=== PATIENT | female | born 1950 | race Hispanic/Latino ===

== ENCOUNTER → 2020-10-26 | Outpatient (CLI) | payer OTHER | END | disposition home or self-care (01) | LOC: RAH 09:03 | PROVIDERS: ATTEND Internal Medicine Gastroenterology | DX: K74.60 Unspecified cirrhosis of liver (principal); R14.3 Flatulence; R16.1 Splenomegaly, not elsewhere classified | CPT/HCPCS: 76700; 93975 ==

== ENCOUNTER 2021-05-28 17:43 | Inpatient (IN) | payer OTHER ==
[~2021-05-28] VITALS: Ht 157.5 cm; Wt 83.4 kg
[2021-05-28 18:15] LABS: BASOPHILS % (AUTO) 0.4 % (0.0-5.0); EOSINOPHILS % (AUTO) 2.3 % (0.0-8.0); LYMPHOCYTES % (AUTO) 34.5 % (21.0-51.0); MEAN CORPUSCULAR HEMOGLOBIN 32.5 pg (27.0-33.0); MEAN CORPUSCULAR VOLUME 92.9 fL (79-99); MONOCYTES % (AUTO) 8.1 % (3.0-13.0); NEUTROPHILS % (AUTO) 54.5 % (40.0-77.0); PLATELET COUNT (AUTO) 80 K/uL (130-400); RED BLOOD CELL COUNT(AUTO) 4.09 MIL/uL (4.00-5.50); RED CELL DISTRIBUTION WIDTH 13.7 % (11.0-15.5); WHITE BLOOD COUNT (AUTO) 4.7 K/uL (4.8-10.8)
[2021-05-28 18:26] LABS: INR 1.61 (0.85-1.15); PROTHROMBIN TIME 16.8 SEC (9.6-11.6)
[2021-05-28 18:27] LABS: CREATININE 1.3 mg/dL (0.5-1.5); POTASSIUM 3.7 mmol/L (3.5-5.1)
[2021-05-28 18:38] LABS: ALBUMIN 3.1 g/dL (3.5-5.0); BILIRUBIN,TOTAL 1.5 mg/dL (0.2-1.0); TOTAL PROTEIN, SERUM 7.8 g/dL (6.0-8.3)
[2021-05-28] MEDS ORDERED: DIATR MEGLU/DIATRIZOATE SODIUM 30 ML BOTTLE ONE (18:52)
[2021-05-28] MEDS ORDERED: IOHEXOL 350 MG/ML 100ML INFUS..BTL IV ONE (19:01)
[2021-05-28 19:31] LABS: APPEARANCE,URINE Clear (CLEAR); BILIRUBIN,URINE Negative (NEGATIVE); COLOR,URINE Yellow (YELLOW); GLUCOSE, URINE (UA) Negative (NEGATIVE); KETONES,URINE Negative (NEGATIVE); LEUKOCYTE ESTERASE ,URINE Trace (NEGATIVE); NITRATE,URINE Negative (NEGATIVE); OCCULT BLOOD,URINE Negative (NEGATIVE); PROTEIN,URINE Negative (NEGATIVE)
[2021-05-28 19:38] LABS: RBC,URINE 0-1 /HPF (0-1)
[2021-05-28 19:39] LABS: BACTERIA,URINE Rare /HPF (None Seen); SQUAMOUS EPITHELIAL CELL,UR Few /HPF (0-2)
[2021-05-28] MEDS ORDERED: RIFA550T PO (21:28)
[2021-05-28] MEDS ORDERED: FURO40TA5 PO (21:28)
[2021-05-28] MEDS ORDERED: GABA-533 PO ×3 (21:28)
[2021-05-28] MEDS ORDERED: PANT40TA54 PO (21:28)
[2021-05-28] MEDS ORDERED: LORA10TA7 PO (21:28)
[2021-05-28] MEDS ORDERED: SPIR50TA5 PO (21:28)
[2021-05-28] MEDS ORDERED: GUAIFENESIN-DM 200/20 MG 10 ML PO PRN (22:30)
[2021-05-28] MEDS ORDERED: MAGNESIUM 2GM PREMIX 50ML 50 ML IV PRN (22:30)
[2021-05-28] MEDS ORDERED: LABETALOL 20MG VIAL IV PRN (22:30)
[2021-05-28] MEDS ORDERED: GLUCAGON 1MG KIT 1 MG ML IM PRN (22:30)
[2021-05-28] MEDS ORDERED: POTASSIUM CHLORIDE 10MEQ/100ML 100 ML IV PRN (22:30)
[2021-05-28] MEDS ORDERED: ACETAMINOPHEN 325 MG TAB PO PRN ×2 (22:30)
[2021-05-28] MEDS ORDERED: ONDANSETRON 4MG INJ IV PRN (22:30)
[2021-05-28] MEDS ORDERED: 0.9%NACL 1000ML 1,000 ML IV SCH (22:30)
[2021-05-28] MEDS ORDERED: NITROGLYCERIN 0.4 MG SL TAB SL PRN (22:30)
[2021-05-28] MEDS ORDERED: DEXTROSE 50%-WATER 50 ML DISP.SYRIN IV PRN (22:30)
[2021-05-28] MEDS ORDERED: ZOLPIDEM TARTRATE 5 MG TAB PO PRN (22:30)
[2021-05-28] MEDS: PANTOPRAZOLE 40 MG/VIAL IVP SCH (22:32)
[2021-05-29] MEDS: INSULIN HUMULIN R 100 UNIT/ML 3ML SQ SCH ×4 (07:30→21:00)
[2021-05-29] MEDS ORDERED: MORPHINE 2 MG SYG ONE (07:51)
[2021-05-29] MEDS ORDERED: ONDANSETRON 4MG INJ IVP PRN (08:00)
[2021-05-29] MEDS ORDERED: MORPHINE 2 MG SYG IVP PRN (08:00)
[2021-05-29] MEDS: DEXTROSE 10%-WATER 1,000 ML IV SCH ×2 (08:30→18:30)
[2021-05-29] MEDS ORDERED: DEXTROSE 10%-WATER 1,000 ML IV ONE (08:33)
[2021-05-29 08:35] LABS: HEMATOCRIT 33.7 % (36-48); MEAN CORPUSCULAR HGB CONC 34.1 g/dL (32.0-36.0); MEAN CORPUSCULAR VOLUME 96.8 fL (79-99); PLATELET COUNT (AUTO) 59 K/uL (130-400); RED BLOOD CELL COUNT(AUTO) 3.48 MIL/uL (4.00-5.50); RED CELL DISTRIBUTION WIDTH 13.9 % (11.0-15.5)
[2021-05-29 08:49] LABS: ALBUMIN 2.6 g/dL (3.5-5.0); BILIRUBIN,TOTAL 1.5 mg/dL (0.2-1.0); POTASSIUM 3.3 mmol/L (3.5-5.1); TOTAL PROTEIN, SERUM 6.6 g/dL (6.0-8.3)
[2021-05-29] MEDS ORDERED: PHYTONADIONE 10 MG in 0.9%NACL 50ML 50 ML IVPB SCH (09:00)
[2021-05-29] MEDS ORDERED: PANTOPRAZOLE 40 MG TAB DR ONE (10:00)
[2021-05-29] MEDS: SPIRONOLACTONE 25 MG TAB PO SCH (10:13)
[2021-05-29] MEDS: LORATADINE 10 MG TABLET PO SCH (10:13)
[2021-05-29] MEDS: PANTOPRAZOLE 40 MG/VIAL IVP SCH (10:14)
[2021-05-29 11:52] LABS: BASOPHILS % (MANUAL) 2 % (0-2); EOSINOPHILS % (MANUAL) 3 % (1-6); LYMPHOCYTES % (MANUAL) 38 % (22-44); MAN.DIFF COMMENT-IMPRESSION MANUAL DIFFERENTIAL; MONOCYTES % (MANUAL) 9 % (2-9); PLATELET MORPHOLOGY COMMENT DECREASED; SEGMENTED NEUTROPHILS % 48 % (40-70)
[2021-05-29] MEDS: OCTREOTIDE ACETATE 1,250 MCG in 0.9% NACL 250ML 250 ML IV SCH ×3 (11:53→14:41)
[2021-05-29] MEDS ORDERED: PANTOPRAZOLE 40 MG/VIAL IVP SCH (12:30)
[2021-05-29] MEDS: GABAPENTIN 300 MG CAPSULE PO SCH ×2 (12:53→21:04)
[2021-05-29] MEDS: GABAPENTIN 100 MG CAPSULE PO SCH ×2 (12:53→21:00)
[2021-05-29] MEDS: PROPRANOLOL HCL 10 MG TAB PO SCH ×2 (13:00→21:04)
[2021-05-29] MEDS ORDERED: PHYTONADIONE 10 MG in 0.9%NACL 50ML 50 ML IVPB ONE (13:00)
[2021-05-29] MEDS: PANTOPRAZOLE 40MG INJ 80 MG in 0.9%NACL 100ML 100 ML IVP SCH ×2 (13:15→22:04)
[2021-05-29 14:00] VITALS: BP 113/52
[2021-05-29 15:25] LABS: HEMATOCRIT 35.4 % (36-48); MEAN CORPUSCULAR HGB CONC 33.6 g/dL (32.0-36.0); MEAN CORPUSCULAR VOLUME 95.2 fL (79-99); RED BLOOD CELL COUNT(AUTO) 3.72 MIL/uL (4.00-5.50); WHITE BLOOD COUNT (AUTO) 3.5 K/uL (4.8-10.8)
[2021-05-29 16:00] VITALS: BP 107/59
[2021-05-29 20:00] VITALS: BP 126/59
[2021-05-29 20:50] LABS: HEMATOCRIT 37.5 % (36-48); MEAN CORPUSCULAR HEMOGLOBIN 32.6 pg (27.0-33.0); MEAN CORPUSCULAR HGB CONC 33.3 g/dL (32.0-36.0); MEAN CORPUSCULAR VOLUME 97.7 fL (79-99); RED BLOOD CELL COUNT(AUTO) 3.84 MIL/uL (4.00-5.50); WHITE BLOOD COUNT (AUTO) 3.5 K/uL (4.8-10.8)
[2021-05-30] VITALS (17 sets, daily range): BP systolic 101–132; BP diastolic 48–69
[2021-05-30] MEDS: DEXTROSE 10%-WATER 1,000 ML IV SCH ×2 (04:30→14:30)
[2021-05-30] MEDS: PROPRANOLOL HCL 10 MG TAB PO SCH ×3 (05:00→20:53)
[2021-05-30 05:38] LABS: BASOPHILS % (AUTO) 0.5 % (0.0-5.0); EOSINOPHILS % (AUTO) 3.2 % (0.0-8.0); HEMATOCRIT 34.9 % (36-48); LYMPHOCYTES % (AUTO) 34.7 % (21.0-51.0); MEAN CORPUSCULAR HEMOGLOBIN 32.2 pg (27.0-33.0); MEAN CORPUSCULAR HGB CONC 34.1 g/dL (32.0-36.0); MEAN CORPUSCULAR VOLUME 94.3 fL (79-99); NEUTROPHILS % (AUTO) 53.3 % (40.0-77.0); PLATELET COUNT (AUTO) 72 K/uL (130-400); RED CELL DISTRIBUTION WIDTH 13.7 % (11.0-15.5); WHITE BLOOD COUNT (AUTO) 3.8 K/uL (4.8-10.8)
[2021-05-30 05:51] LABS: INR 1.56 (0.85-1.15); PROTHROMBIN TIME 16.3 SEC (9.6-11.6)
[2021-05-30 05:54] LABS: POTASSIUM 4.1 mmol/L (3.5-5.1)
[2021-05-30] MEDS: INSULIN HUMULIN R 100 UNIT/ML 3ML SQ SCH ×4 (05:59→21:00)
[2021-05-30] MEDS ORDERED: PHYTONADIONE 10 MG in 0.9%NACL 50ML 50 ML IVPB SCH (08:00)
[2021-05-30] MEDS ORDERED: COMPOUND IV REFRIGERATED 1 EACH IVSOLN MISC PRN (09:00)
[2021-05-30 09:06] LABS: HEMATOCRIT 35.7 % (36-48); MEAN CORPUSCULAR HEMOGLOBIN 32.1 pg (27.0-33.0); MEAN CORPUSCULAR HGB CONC 33.9 g/dL (32.0-36.0); MEAN CORPUSCULAR VOLUME 94.7 fL (79-99); RED BLOOD CELL COUNT(AUTO) 3.77 MIL/uL (4.00-5.50); RED CELL DISTRIBUTION WIDTH 13.9 % (11.0-15.5); WHITE BLOOD COUNT (AUTO) 3.6 K/uL (4.8-10.8)
[2021-05-30] MEDS: SPIRONOLACTONE 25 MG TAB PO SCH (10:08)
[2021-05-30] MEDS: PHYTONADIONE 10 MG in 0.9%NACL 50ML 50 ML IVPB SCH (10:08)
[2021-05-30] MEDS: LORATADINE 10 MG TABLET PO SCH (10:08)
[2021-05-30] MEDS: PANTOPRAZOLE 40MG INJ 80 MG in 0.9%NACL 100ML 100 ML IVP SCH (10:14)
[2021-05-30] MEDS ORDERED: PROPOFOL 10 MG/ML 20ML VIAL IV ONE ×2 (10:54)
[2021-05-30] MEDS ORDERED: EPHEDRINE SULFATE 50 MG/ML AMPULE ONE (12:01)
[2021-05-30] MEDS: CEFTRIAXONE 1G VIAL IVP SCH (13:24)
[2021-05-30] MEDS: GABAPENTIN 100 MG CAPSULE PO SCH ×2 (13:25→20:52)
[2021-05-30] MEDS: GABAPENTIN 300 MG CAPSULE PO SCH ×2 (13:26→20:50)
[2021-05-30] MEDS ORDERED: MAGNESIUM CITRATE 296 ML SOLUTION PO SCH (14:20)
[2021-05-30] MEDS: LACTULOSE 20 GM/30 ML UDCUP PO SCH ×2 (14:53→16:54)
[2021-05-30] MEDS ORDERED: PEG 3350/NA SULF,BICARB,CL/KCL 4000 ML SOLN PO SCH (15:00)
[2021-05-31] MEDS: DEXTROSE 10%-WATER 1,000 ML IV SCH ×3 (00:30→20:30)
[2021-05-31 03:51] VITALS: BP 105/40
[2021-05-31] MEDS: PROPRANOLOL HCL 10 MG TAB PO SCH ×3 (05:00→21:10)
[2021-05-31 05:30] LABS: HEMATOCRIT 38.7 % (36-48); MEAN CORPUSCULAR HEMOGLOBIN 32.6 pg (27.0-33.0); MEAN CORPUSCULAR HGB CONC 34.6 g/dL (32.0-36.0); MEAN CORPUSCULAR VOLUME 94.2 fL (79-99); RED BLOOD CELL COUNT(AUTO) 4.11 MIL/uL (4.00-5.50); RED CELL DISTRIBUTION WIDTH 13.8 % (11.0-15.5); WHITE BLOOD COUNT (AUTO) 5.5 K/uL (4.8-10.8)
[2021-05-31] MEDS: INSULIN HUMULIN R 100 UNIT/ML 3ML SQ SCH ×4 (07:30→21:00)
[2021-05-31 07:44] LABS: CREATININE 1.1 mg/dL (0.5-1.5)
[2021-05-31 08:00] VITALS: BP 123/61
[2021-05-31] MEDS: PHYTONADIONE 10 MG in 0.9%NACL 50ML 50 ML IVPB SCH (08:00)
[2021-05-31 11:29] VITALS: BP 110/55
[2021-05-31] MEDS ORDERED: MAGNESIUM CITRATE 296 ML SOLUTION PO SCH (13:00)
[2021-05-31] MEDS: PANTOPRAZOLE 40 MG TAB DR PO SCH (13:09)
[2021-05-31] MEDS: LORATADINE 10 MG TABLET PO SCH (13:09)
[2021-05-31] MEDS: SPIRONOLACTONE 25 MG TAB PO SCH (13:09)
[2021-05-31] MEDS: CEFTRIAXONE 1G VIAL IVP SCH (13:12)
[2021-05-31] MEDS: LACTULOSE 20 GM/30 ML UDCUP PO SCH ×2 (13:12→15:16)
[2021-05-31] MEDS: GABAPENTIN 100 MG CAPSULE PO SCH ×2 (13:13→21:00)
[2021-05-31] MEDS: GABAPENTIN 300 MG CAPSULE PO SCH ×2 (13:13→21:10)
[2021-05-31] MEDS ORDERED: PEG 3350/NA SULF,BICARB,CL/KCL 4000 ML SOLN PO SCH (15:00)
[2021-05-31 16:00] VITALS: BP 113/54
[2021-05-31 20:00] VITALS: BP 129/58
[2021-05-31] MEDS: OCTREOTIDE ACETATE 1,250 MCG in 0.9% NACL 250ML 250 ML IV SCH (21:57)
[2021-06-01] VITALS (20 sets, daily range): BP systolic 98–119; BP diastolic 46–79
[2021-06-01 04:54] LABS: BASOPHILS % (AUTO) 0.6 % (0.0-5.0); EOSINOPHILS % (AUTO) 3.3 % (0.0-8.0); HEMATOCRIT 38.7 % (36-48); LYMPHOCYTES % (AUTO) 47.3 % (21.0-51.0); MEAN CORPUSCULAR HGB CONC 33.3 g/dL (32.0-36.0); NEUTROPHILS % (AUTO) 40.6 % (40.0-77.0); PLATELET COUNT (AUTO) 94 K/uL (130-400); RED BLOOD CELL COUNT(AUTO) 4.03 MIL/uL (4.00-5.50); RED CELL DISTRIBUTION WIDTH 13.5 % (11.0-15.5); WHITE BLOOD COUNT (AUTO) 5.1 K/uL (4.8-10.8)
[2021-06-01] MEDS: PROPRANOLOL HCL 10 MG TAB PO SCH ×2 (05:00→13:00)
[2021-06-01 05:05] LABS: INR 1.61 (0.85-1.15); PROTHROMBIN TIME 16.8 SEC (9.6-11.6)
[2021-06-01 05:11] LABS: ALBUMIN 2.9 g/dL (3.5-5.0); BILIRUBIN,TOTAL 1.7 mg/dL (0.2-1.0); CREATININE 1.2 mg/dL (0.5-1.5); MAGNESIUM 2.1 mg/dL (1.80-2.40); POTASSIUM 3.6 mmol/L (3.5-5.1); TOTAL PROTEIN, SERUM 7.4 g/dL (6.0-8.3)
[2021-06-01] MEDS: DEXTROSE 10%-WATER 1,000 ML IV SCH ×2 (06:02→16:30)
[2021-06-01] MEDS: INSULIN HUMULIN R 100 UNIT/ML 3ML SQ SCH ×3 (06:03→16:30)
[2021-06-01] MEDS: LORATADINE 10 MG TABLET PO SCH (09:00)
[2021-06-01] MEDS: SPIRONOLACTONE 25 MG TAB PO SCH (09:00)
[2021-06-01] MEDS: PANTOPRAZOLE 40 MG TAB DR PO SCH (09:00)
[2021-06-01] MEDS ORDERED: LIDOCAINE HCL 1% 20 ML VIAL ONE (11:16)
[2021-06-01] MEDS ORDERED: PROPOFOL 10 MG/ML 20ML VIAL IV ONE (11:16)
[2021-06-01] MEDS ORDERED: FENTANYL CITRATE PF 50 MCG/1 ML 2ML VIAL ONE (11:16)
[2021-06-01] MEDS ORDERED: EPHEDRINE SULFATE 50 MG/ML AMPULE ONE (11:24)
[2021-06-01] MEDS: GABAPENTIN 100 MG CAPSULE PO SCH (12:00)
[2021-06-01] MEDS: GABAPENTIN 300 MG CAPSULE PO SCH (12:00)
== END 2021-06-01 18:50 | disposition home or self-care (01) | DRG 378 ==
LOC: EDH 17:43 → OBSVTOIN 21:12 → EDHIP 21:12 → 3BH 05-29 12:08
PROVIDERS: ADMIT Internal Medicine; ATTEND Internal Medicine
PROC: 0DJ08ZZ Inspection of Upper Intestinal Tract, Via Natural or Artificial Opening Endoscopic (ICD-10-PCS; principal; 2021-05-30)
PROC: 0DBK8ZZ Excision of Ascending Colon, Via Natural or Artificial Opening Endoscopic (ICD-10-PCS; 2021-06-01)
PROC: 0DBL8ZZ Excision of Transverse Colon, Via Natural or Artificial Opening Endoscopic (ICD-10-PCS; 2021-06-01)
PROC: 0DBN8ZZ Excision of Sigmoid Colon, Via Natural or Artificial Opening Endoscopic (ICD-10-PCS; 2021-06-01)
PROC: 0DBP8ZZ Excision of Rectum, Via Natural or Artificial Opening Endoscopic (ICD-10-PCS; 2021-06-01)
DX: K29.01 Acute gastritis with bleeding (principal); N17.9 Acute kidney failure, unspecified; K76.6 Portal hypertension; D62 Acute posthemorrhagic anemia; J98.11 Atelectasis; D68.9 Coagulation defect, unspecified; K63.5 Polyp of colon; K62.1 Rectal polyp; D69.6 Thrombocytopenia, unspecified; K74.60 Unspecified cirrhosis of liver; E11.65 Type 2 diabetes mellitus with hyperglycemia; K21.00 Gastro-esophageal reflux disease with esophagitis, without bleeding; K64.1 Second degree hemorrhoids; E11.22 Type 2 diabetes mellitus with diabetic chronic kidney disease; N18.30 Chronic kidney disease, stage 3 unspecified; K21.9 Gastro-esophageal reflux disease without esophagitis; E66.9 Obesity, unspecified; Z68.34 Body mass index [BMI] 34.0-34.9, adult; R16.1 Splenomegaly, not elsewhere classified; D25.9 Leiomyoma of uterus, unspecified; Z79.899 Other long term (current) drug therapy; Z90.49 Acquired absence of other specified parts of digestive tract; Z83.3 Family history of diabetes mellitus; Z20.822 Contact with and (suspected) exposure to COVID-19
CPT/HCPCS: 36415; 43235; 45380; 45385; 71045; 74177; 80048; 80053; 81001; 82105; 82140; 82270; 82948; 83605; 83735; 84484; 85025; 85027; 85610; 86850; 86900; 86901; 87635; 88305; A4606; C9113; G0378; G9654; J0696; J2354; J2405; J2704; J3010; J3430; J3490; J7030; J7050; J7070; Q9963; Q9967

== ENCOUNTER 2021-07-24 00:30 | Observation (INO) | payer OTHER ==
[~2021-07-24] VITALS: Ht 152.4 cm; Wt 81.7 kg
[~2021-07-24 00:30] MED LIST: FURO40TA5 PO; GABA-533 PO; LORA10TA7 PO; PANT40TA54 PO; RIFA550T PO; SPIR50TA5 PO
[2021-07-24 01:31] LABS: BASOPHILS % (AUTO) 0.4 % (0.0-5.0); HEMATOCRIT 41.9 % (36-48); LYMPHOCYTES % (AUTO) 31.6 % (21.0-51.0); MEAN CORPUSCULAR HEMOGLOBIN 31.5 pg (27.0-33.0); MEAN CORPUSCULAR HGB CONC 34.1 g/dL (32.0-36.0); MEAN CORPUSCULAR VOLUME 92.3 fL (79-99); MONOCYTES % (AUTO) 7.9 % (3.0-13.0); NEUTROPHILS % (AUTO) 58.9 % (40.0-77.0); PLATELET COUNT (AUTO) 86 K/uL (130-400); RED BLOOD CELL COUNT(AUTO) 4.54 MIL/uL (4.00-5.50); RED CELL DISTRIBUTION WIDTH 13.4 % (11.0-15.5); WHITE BLOOD COUNT (AUTO) 4.9 K/uL (4.8-10.8)
[2021-07-24 01:48] LABS: ALBUMIN 3.2 g/dL (3.5-5.0); BILIRUBIN,TOTAL 1.3 mg/dL (0.2-1.0); CREATININE 1.8 mg/dL (0.5-1.5); POTASSIUM 4.4 mmol/L (3.5-5.1); TOTAL PROTEIN, SERUM 8.5 g/dL (6.0-8.3)
[2021-07-24] MEDS ORDERED: 0.9%NACL 1000ML 1,000 ML IV ONE ×2 (03:00)
[2021-07-24] MEDS ORDERED: LACTULOSE 20 GM/30 ML UDCUP ONE (03:08)
[2021-07-24 03:19] LABS: APPEARANCE,URINE Clear (CLEAR); BILIRUBIN,URINE Negative (NEGATIVE); COLOR,URINE Yellow (YELLOW); GLUCOSE, URINE (UA) >=1000 mg/dL (NEGATIVE); KETONES,URINE Negative (NEGATIVE); LEUKOCYTE ESTERASE ,URINE Negative (NEGATIVE); NITRATE,URINE Negative (NEGATIVE); OCCULT BLOOD,URINE Negative (NEGATIVE); PH,URINE 6.5 (5.0-8.0); PROTEIN,URINE Negative (NEGATIVE)
[2021-07-24] MEDS ORDERED: LACTULOSE 20 GM/30 ML UDCUP PO ONE (03:30)
[2021-07-24 03:32] LABS: ABG OXYGEN SATURATION 86.4 % (95.0-99.0); BASE EXCESS,VENOUS BLOOD GAS 0.5 (-2.0-3.0); HCO3,VENOUS BLOOD GAS 23.7 (21.0-28.0); PCO2,VENOUS BLOOD GAS 34 (32-45); PH,VENOUS BLOOD GAS 7.458 (7.350-7.450)
[2021-07-24 03:38] LABS: RBC,URINE 0-1 /HPF (0-1); WBC,URINE None Seen /HPF (0-1)
[2021-07-24 03:39] LABS: BACTERIA,URINE Moderate /HPF (None Seen)
[2021-07-24 03:40] LABS: SQUAMOUS EPITHELIAL CELL,UR Rare /HPF (0-2)
[2021-07-24] MEDS: ONDANSETRON 4MG INJ IV PRN ×2 (03:55→09:18)
[2021-07-24] MEDS ORDERED: LACTATED RINGERS 1000ML 1,000 ML IV SCH (04:00)
[2021-07-24 04:20] LABS: HEMOGLOBIN A1C 9.6 % (4.0-6.0)
[2021-07-24] MEDS ORDERED: INSULIN HUMULIN R 100 UNIT/ML 3ML ONE (04:47)
[2021-07-24] MEDS: LACTULOSE 20 GM/30 ML UDCUP PO SCH ×4 (04:48→20:53)
[2021-07-24] MEDS ORDERED: INSULIN HUMULIN R 100 UNIT/ML 3ML IV ONE (05:00)
[2021-07-24] MEDS ORDERED: FAMOTIDINE 20MG TAB PO SCH ×2 (09:00)
[2021-07-24] MEDS ORDERED: RIFAXIMIN 200 MG TABLET PO SCH (09:00)
[2021-07-24] MEDS ORDERED: ONDANSETRON 4MG INJ IVP PRN (09:30)
[2021-07-24] MEDS ORDERED: DEXTROSE 50%-WATER 50 ML DISP.SYRIN IV PRN (09:30)
[2021-07-24] MEDS ORDERED: CEFTRIAXONE 1G VIAL IVP SCH (09:30)
[2021-07-24] MEDS: CEFTRIAXONE 2GM VIAL IVP SCH (09:30)
[2021-07-24] MEDS ORDERED: ACETAMINOPHEN 325 MG TAB PO PRN (09:30)
[2021-07-24] MEDS ORDERED: ACETAMINOPHEN 650 MG SUPPOSITORY RC PRN (09:30)
[2021-07-24] MEDS ORDERED: GLUCAGON 1MG KIT 1 MG ML IM PRN (09:30)
[2021-07-24 11:13] LABS: INR 1.54 (0.85-1.15); PROTHROMBIN TIME 16.1 SEC (9.6-11.6)
[2021-07-24 11:14] LABS: PARTIAL THROMBOPLASTIN TIME 28.5 SEC (26.3-35.5)
[2021-07-24 11:22] LABS: CREATININE 1.3 mg/dL (0.5-1.5); POTASSIUM 3.6 mmol/L (3.5-5.1)
[2021-07-24] MEDS: INSULIN HUMULIN R 100 UNIT/ML 3ML SQ SCH ×3 (11:43→21:00)
[2021-07-24 14:23] VITALS: BP 134/73
[2021-07-24] MEDS ORDERED: IRON18TA PO (14:57)
[2021-07-24] MEDS ORDERED: SPIR50TA5 PO (14:57)
[2021-07-24] MEDS ORDERED: TRAZ-185 PO (14:57)
[2021-07-24] MEDS ORDERED: MECO10005 PO (14:57)
[2021-07-24] MEDS ORDERED: ERGO500093 PO (15:00)
[2021-07-24] MEDS ORDERED: FAMO40TA7 PO (15:03)
[2021-07-24] MEDS ORDERED: GABA-533 PO ×3 (15:17)
[2021-07-24] MEDS ORDERED: FURO40TA5 PO (15:17)
[2021-07-24] MEDS ORDERED: LORA10TA7 PO (15:17)
[2021-07-24] MEDS ORDERED: PANT40TA54 PO (15:17)
[2021-07-24] MEDS ORDERED: INSLAN SQ (15:23)
[2021-07-24 20:00] VITALS: BP 135/75
[2021-07-24] MEDS: PANTOPRAZOLE 40 MG/VIAL IVP SCH (20:50)
[2021-07-24] MEDS: RIFAXIMIN 550 MG TABLET PO SCH (20:51)
[2021-07-25] VITALS: BP 128/65
[2021-07-25 04:00] VITALS: BP 130/69
[2021-07-25 04:38] LABS: MEAN CORPUSCULAR HGB CONC 33.8 g/dL (32.0-36.0); MEAN CORPUSCULAR VOLUME 94.4 fL (79-99); RED BLOOD CELL COUNT(AUTO) 4.13 MIL/uL (4.00-5.50)
[2021-07-25] MEDS: LACTULOSE 20 GM/30 ML UDCUP PO SCH ×3 (04:40→16:00)
[2021-07-25 05:05] LABS: ALBUMIN 2.9 g/dL (3.5-5.0); BILIRUBIN,DIRECT 0.7 mg/dL (0.0-0.3); BILIRUBIN,TOTAL 2.4 mg/dL (0.2-1.0); CREATININE 1.2 mg/dL (0.5-1.5); POTASSIUM 3.6 mmol/L (3.5-5.1); TOTAL PROTEIN, SERUM 7.6 g/dL (6.0-8.3)
[2021-07-25] MEDS: INSULIN HUMULIN R 100 UNIT/ML 3ML SQ SCH ×3 (07:30→16:37)
[2021-07-25 08:00] VITALS: BP 140/75
[2021-07-25] MEDS: PANTOPRAZOLE 40 MG/VIAL IVP SCH (10:01)
[2021-07-25] MEDS: RIFAXIMIN 550 MG TABLET PO SCH (10:01)
[2021-07-25] MEDS: CEFTRIAXONE 2GM VIAL IVP SCH (10:01)
[2021-07-25 12:00] VITALS: BP 125/58
[2021-07-25 16:00] VITALS: BP 120/72
== END 2021-07-25 20:00 | disposition home or self-care (01) ==
LOC: EDH 00:30 → EDHIP 03:31 → 4CH 14:32
PROVIDERS: ADMIT Internal Medicine Critical Care Medicine; ATTEND Internal Medicine Critical Care Medicine
DX: K72.90 Hepatic failure, unspecified without coma (principal); Z20.822 Contact with and (suspected) exposure to COVID-19; E11.65 Type 2 diabetes mellitus with hyperglycemia; K74.60 Unspecified cirrhosis of liver; D69.6 Thrombocytopenia, unspecified; E11.40 Type 2 diabetes mellitus with diabetic neuropathy, unspecified; E66.01 Morbid (severe) obesity due to excess calories; E78.00 Pure hypercholesterolemia, unspecified; E86.9 Volume depletion, unspecified; I10 Essential (primary) hypertension; N17.9 Acute kidney failure, unspecified; G93.41 Metabolic encephalopathy; E87.1 Hypo-osmolality and hyponatremia; R41.82 Altered mental status, unspecified; Z79.4 Long term (current) use of insulin; Z90.49 Acquired absence of other specified parts of digestive tract; Z79.899 Other long term (current) drug therapy; Z98.890 Other specified postprocedural states; Z68.35 Body mass index [BMI] 35.0-35.9, adult
CPT/HCPCS: 36415 ×2; 36600; 70450; 71045; 74018; 74176; 80048; 80053; 80076; 81001; 82010; 82140 ×2; 82803; 82948 ×7; 83036; 83605 ×2; 84484; 85025; 85027; 85610; 85730; 86850; 86900; 86901; 87040 ×2; 87077; 87088; 87186; 87635; 93005; 96374; 96375; 96376 ×2; 97039 ×2; 97161; 99285; C9113 ×2; G0378 ×39; J0696 ×2; J1815 ×4; J2405 ×2

== ENCOUNTER 2022-09-27 18:12 | Emergency (ER) | payer OTHER ==
[~2022-09-27] VITALS: Ht 154.9 cm; Wt 81.6 kg
[~2022-09-27 18:12] MED LIST changes: +ERGO500093 PO; +FAMO40TA7 PO; +INSLAN SQ; +IRON18TA PO; +MECO10005 PO; -RIFA550T PO; +TRAZ-185 PO
[2022-09-27 18:41] LABS: BASOPHILS % (AUTO) 0.5 % (0.0-5.0); EOSINOPHILS % (AUTO) 1.9 % (0.0-8.0); HEMATOCRIT 37.2 % (36-48); LYMPHOCYTES % (AUTO) 34.7 % (21.0-51.0); MEAN CORPUSCULAR HEMOGLOBIN 33.1 pg (27.0-33.0); MEAN CORPUSCULAR HGB CONC 34.4 g/dL (32.0-36.0); MEAN CORPUSCULAR VOLUME 96.1 fL (79-99); MONOCYTES % (AUTO) 6.9 % (3.0-13.0); NEUTROPHILS % (AUTO) 55.7 % (40.0-77.0); PLATELET COUNT (AUTO) 64 K/uL (130-400); RED BLOOD CELL COUNT(AUTO) 3.87 MIL/uL (4.00-5.50); RED CELL DISTRIBUTION WIDTH 14.7 % (11.0-15.5); WHITE BLOOD COUNT (AUTO) 3.8 K/uL (4.8-10.8)
[2022-09-27 18:53] LABS: CREATININE 1.3 mg/dL (0.5-1.5); POTASSIUM 3.9 mmol/L (3.5-5.1)
[2022-09-27 19:02] LABS: ALBUMIN 2.7 g/dL (3.5-5.0); TOTAL PROTEIN, SERUM 6.9 g/dL (6.0-8.3)
[2022-09-27 20:44] LABS: APPEARANCE,URINE CLEAR (CLEAR); BILIRUBIN,URINE NEGATIVE (NEGATIVE); COLOR,URINE YELLOW (YELLOW); GLUCOSE, URINE (UA) >=1000 mg/dL (NEGATIVE); KETONES,URINE NEGATIVE (NEGATIVE); LEUKOCYTE ESTERASE ,URINE NEGATIVE Leu/uL (NEGATIVE); NITRATE,URINE NEGATIVE (NEGATIVE); OCCULT BLOOD,URINE NEGATIVE (NEGATIVE); PH,URINE 6.5 (5.0-8.0); PROTEIN,URINE NEGATIVE (NEGATIVE)
[2022-09-27 20:49] LABS: BACTERIA,URINE MOD /HPF (None Seen); MUCUS,URINE RARE LPF (None Seen); SQUAMOUS EPITHELIAL CELL,UR FEW /HPF (0-2); YEAST,URINE BUDDING RARE /HPF (None Seen)
[2022-09-27 23:00] VITALS: BP 148/75
== END 2022-09-27 23:03 | disposition home or self-care (01) ==
LOC: EDH 18:12
DX: K74.60 Unspecified cirrhosis of liver (principal); R41.82 Altered mental status, unspecified; I10 Essential (primary) hypertension; E11.9 Type 2 diabetes mellitus without complications; Z79.899 Other long term (current) drug therapy
CPT/HCPCS: 36415; 80053; 81001; 82140; 84484; 85025; 87077; 87088; 87186; 93005

== ENCOUNTER → 2023-05-22 | Outpatient (CLI) | payer OTHER ==
[~2023-05-22] MED LIST changes: -GABA-533 PO; +GABA-534 PO
== END | disposition home or self-care (01) ==
LOC: RAH 10:03
PROVIDERS: ATTEND Internal Medicine
DX: R60.0 Localized edema (principal); Z86.718 Personal history of other venous thrombosis and embolism
CPT/HCPCS: 93971

== ENCOUNTER → 2024-06-11 | Outpatient (CLI) | payer OTHER ==
--- NOTE | 2024-06-11 15:31 | HMCIMG ---
US CAROTID DUPLEX HISTORY: Dizziness COMPARISON: None TECHNIQUE: Duplex carotid arterial Doppler ultrasound study was performed. FINDINGS: The common, internal and external carotid arteries are visualized. The peak systolic velocities of right common carotid artery is 65 centimeters per second, right internal carotid artery is 101 centimeters per second, right external carotid artery is 102 centimeters per second, and right vertebral artery is 58 centimeters per second. Right internal carotid artery to right common carotid artery ratio is 1.6. Right vertebral artery is seen with antegrade flow. The peak systolic velocities of left common carotid artery is 82 centimeters per second, left internal carotid artery is 94 centimeters per second, left external carotid artery is 148 centimeters per second, and left vertebral artery is 57 centimeters per second. Left internal carotid artery to left common carotid artery ratio is 1.1. Left vertebral artery is seen with antegrade flow. There are bilateral echogenic plaques. IMPRESSION: 1. No hemodynamically significant lesion is seen of either extracranial carotid artery system.
== END | disposition home or self-care (01) ==
LOC: RAH 10:58
PROVIDERS: ATTEND Internal Medicine
DX: I65.23 Occlusion and stenosis of bilateral carotid arteries (principal); R41.3 Other amnesia; R42 Dizziness and giddiness; Z91.81 History of falling
CPT/HCPCS: 93880